=== PATIENT | male | born 1950 | race Asian ===

== ENCOUNTER 2019-03-08 05:17 | Day surgery (SDC) | payer MEDICAID ==
[~2019-03-08] VITALS: Ht 156.2 cm; Wt 49.1 kg
[~2019-03-08 05:17] MED LIST: ALBU8HFA IH; BENZ-51 PO; FLUT16H NASAL; MONT10TA21 PO; OMEP20 PO
[2019-03-08] MEDS ORDERED: LIDOCAINE 2% 30 ML JELLY TP ONE (05:18)
[2019-03-08] MEDS ORDERED: BENZOCAINE 20% 50 MCG/SPRAY 57 GM TP ONE (05:18)
[2019-03-08] MEDS ORDERED: ALBUTEROL SULFATE 2.5 MG/0.5 ML NEB SOLUTION NEB ONE (05:18)
[2019-03-08] MEDS ORDERED: LIDOCAINE 4% 50 ML SOLUTION TP ONE (05:18)
[2019-03-08] MEDS ORDERED: SODIUM CHLORIDE 0.9% 1,000 ML IV ONE ×2 (05:34→06:30)
[2019-03-08] MEDS ORDERED: MIDAZOLAM HCL 2 MG/2 ML VIAL ONE (08:06)
[2019-03-08] MEDS ORDERED: FentaNYL CITRATE-PF 100 MCG/2 ML VIAL ONE (08:06)
[2019-03-08] MEDS ORDERED: MethylPREDNISolone SOD SUCC 125 MG/2 ML VIAL IVP ONE (08:30)
[2019-03-08] MEDS ORDERED: MethylPREDNISolone SOD SUCC 125 MG/2 ML VIAL ONE ×2 (08:39→08:51)
[2019-03-08] MEDS ORDERED: OXYGEN THERAPY IH SCH (20:00)
== END 2019-03-08 10:30 | disposition home or self-care (01) ==
LOC: SURGERY 05:17
PROVIDERS: ATTEND Internal Medicine Critical Care Medicine
DX: R05 Cough (principal); R91.1 Solitary pulmonary nodule; B37.0 Candidal stomatitis; J34.89 Other specified disorders of nose and nasal sinuses; J38.4 Edema of larynx; J98.8 Other specified respiratory disorders
CPT/HCPCS: 31623; 31624; 71045; 87015; 87070; 87077; 87101; 87186; 87205; 87206; 87220; 88108; 88312; J2250; J2930; J3010; J7030

== ENCOUNTER 2020-08-21 05:21 | Day surgery (SDC) | payer MEDICARE, MEDICAID ==
[~2020-08-21] VITALS: Ht 157.5 cm; Wt 50.0 kg
[~2020-08-21 05:21] MED LIST changes: -BENZ-51 PO; +BENZ-70 PO; +MONT-35 PO; -MONT10TA21 PO
[2020-08-21 06:12] LABS: COVID AG,FIA SOURCE NASOPHARYNGEAL
[2020-08-21] MEDS ORDERED: SODIUM CHLORIDE 0.9% 1,000 ML IV ONE (06:30)
[2020-08-21] MEDS ORDERED: PROM6.2514 PO (06:56)
[2020-08-21] MEDS ORDERED: DOXY-354 PO (06:56)
[2020-08-21] MEDS ORDERED: SODIUM CHLORIDE 0.9% 1,000 ML ONE (07:02)
[2020-08-21] MEDS ORDERED: FentaNYL CITRATE PF 100 MCG/2 ML VIAL ONE (07:49)
[2020-08-21] MEDS ORDERED: MIDAZOLAM HCL 2 MG/2 ML VIAL ONE (07:49)
[2020-08-21] MEDS ORDERED: MethylPREDNISolone SOD SUCC 125 MG/2 ML VIAL IVP ONE (09:00)
[2020-08-21] MEDS ORDERED: MethylPREDNISolone SOD SUCC 125 MG/2 ML VIAL ONE (10:07)
[2020-08-21] MEDS ORDERED: LIDOCAINE 4% 50 ML SOLUTION TP ONE (12:00)
[2020-08-21] MEDS ORDERED: LIDOCAINE 2% 30 ML JELLY TP ONE (12:00)
[2020-08-21] MEDS ORDERED: ALBUTEROL SULFATE 2.5 MG/0.5 ML NEB SOLUTION NEB ONE (12:00)
[2020-08-21] MEDS ORDERED: BENZOCAINE 20% 50 MCG/SPRAY 57 GM TP ONE (12:00)
[2020-08-21] MEDS ORDERED: OXYGEN THERAPY IH SCH (20:00)
== END 2020-08-21 11:40 | disposition home or self-care (01) ==
LOC: SURGERY 05:21
PROVIDERS: ATTEND Internal Medicine Critical Care Medicine
DX: J38.4 Edema of larynx (principal); B37.0 Candidal stomatitis
CPT/HCPCS: 31623; 31624; 71045; 87015; 87070; 87101; 87205; 87206; 87220; 87426; 88108; 88184; 88185; 88312; C9803; J2250; J2930; J3010; J7030; J7613; Z7610

== ENCOUNTER 2021-10-01 05:44 | Day surgery (SDC) | payer MEDICARE, MEDICAID ==
[~2021-10-01] VITALS: Ht 157.5 cm; Wt 53.0 kg
[~2021-10-01 05:44] MED LIST changes: -ALBU8HFA IH; +DOXY-354 PO; -MONT-35 PO; +PROM6.2514 PO
[2021-10-01] MEDS ORDERED: LIDOCAINE 4% 50 ML SOLUTION TP ONE (05:45)
[2021-10-01] MEDS ORDERED: LIDOCAINE 2% 30 ML JELLY TP ONE (05:45)
[2021-10-01] MEDS ORDERED: BENZOCAINE 20% 50 MCG/SPRAY 57 GM TP ONE (05:45)
[2021-10-01] MEDS ORDERED: SODIUM CHLORIDE 0.9% 1,000 ML IV ONE (06:00)
[2021-10-01] MEDS ORDERED: SODIUM CHLORIDE 0.9% 1,000 ML ONE (06:37)
[2021-10-01 06:49] LABS: COVID AG,FIA SOURCE NASAL SWAB
[2021-10-01] MEDS ORDERED: MIDAZOLAM HCL 5 MG/ML VIAL ONE (07:29)
[2021-10-01] MEDS ORDERED: FentaNYL CITRATE PF 100 MCG/2 ML VIAL ONE (07:29)
[2021-10-01] MEDS ORDERED: MethylPREDNISolone SOD SUCC 125 MG/2 ML VIAL ONE (09:11)
[2021-10-01] MEDS ORDERED: MethylPREDNISolone SOD SUCC 125 MG/2 ML VIAL IVP ONE (09:15)
== END 2021-10-01 10:40 | disposition home or self-care (01) ==
LOC: SURGERY 05:44
PROVIDERS: ATTEND Internal Medicine Critical Care Medicine
DX: J38.4 Edema of larynx (principal); B37.0 Candidal stomatitis; Z79.899 Other long term (current) drug therapy
CPT/HCPCS: 31623; 31624; 71045; 87015; 87070; 87101; 87206; 87220; 87426; 88112; 88184; 88185; 88305; 88312; C9803; J2250; J2930; J3010; J7030; Z7610

== ENCOUNTER 2022-05-27 05:29 | Day surgery (SDC) | payer MEDICARE, MEDICAID ==
[~2022-05-27] VITALS: Ht 157.5 cm; Wt 58.1 kg
[~2022-05-27 05:29] MED LIST changes: +ALBU8HFA IH; -BENZ-70 PO; +BUDE10.26 IH; -DOXY-354 PO; -FLUT16H NASAL; +MONT-35 PO; -OMEP20 PO; +PRED-729 PO; +PROM118S5 PO; -PROM6.2514 PO
[2022-05-27] MEDS ORDERED: LIDOCAINE 4% 50 ML SOLUTION TP ONE (05:30)
[2022-05-27] MEDS ORDERED: BENZOCAINE 20% 50 MCG/SPRAY 57 GM TP ONE (05:30)
[2022-05-27] MEDS ORDERED: LIDOCAINE 2% 11 ML JELLY TP ONE (05:30)
[2022-05-27 05:59] LABS: COVID AG,FIA SOURCE NASAL SWAB
[2022-05-27] MEDS ORDERED: SODIUM CHLORIDE 0.9% 1,000 ML IV ONE ×2 (06:30→07:00)
[2022-05-27] MEDS ORDERED: SODIUM CHLORIDE 0.9% 1,000 ML ONE (06:37)
[2022-05-27] MEDS ORDERED: EPINEPHrine 1:10,000 [1 MG/10 ML] SYRINGE ONE (07:50)
[2022-05-27] MEDS ORDERED: NALOXONE HCL 0.4 MG/ML VIAL ONE (07:51)
[2022-05-27] MEDS ORDERED: ATROPINE SULFATE 0.1 MG/ML 10 ML SYRINGE IVP ONE (07:51)
[2022-05-27] MEDS ORDERED: FLUMAZENIL 0.1 MG/ML 5 ML VIAL IVP ONE (07:51)
[2022-05-27] MEDS ORDERED: DiphenhydrAMINE HCL 50 MG/ML VIAL ONE (07:51)
[2022-05-27] MEDS ORDERED: SODIUM TETRADECYL SULFATE 3% 60 MG/2 ML VIAL IVP ONE (07:51)
[2022-05-27] MEDS ORDERED: FentaNYL CITRATE PF 100 MCG/2 ML VIAL ONE (07:52)
[2022-05-27] MEDS ORDERED: MIDAZOLAM HCL 2 MG/2 ML VIAL ONE (07:52)
[2022-05-27] MEDS ORDERED: MethylPREDNISolone SOD SUCC 125 MG/2 ML VIAL IVP ONE (09:30)
[2022-05-27] MEDS ORDERED: OXYGEN THERAPY IH SCH (20:00)
== END 2022-05-27 11:20 | disposition home or self-care (01) ==
LOC: SURGERY 05:29
PROVIDERS: ATTEND Internal Medicine Critical Care Medicine
DX: J38.4 Edema of larynx (principal); B37.0 Candidal stomatitis; Z98.890 Other specified postprocedural states; Z87.891 Personal history of nicotine dependence; Z20.822 Contact with and (suspected) exposure to COVID-19; Z79.899 Other long term (current) drug therapy
CPT/HCPCS: 31623; 87101; 87220; 87070; 31624; 71045; 87015; 87426; 87206; J3010; J2250; J2930; Q9967; J7030; C9803; 88112; J0171; J0461; J1200; J2310; J3490; Z7610